=== PATIENT | male | born 1960 | race Caucasian/White ===

== ENCOUNTER 2017-12-22 11:50 | Inpatient (IN) | payer OTHER | END 2017-12-24 12:25 | disposition home or self-care (01) | DRG 244 | LOC: D.ICU 11:50 → D.CVICU 13:33 | PROC: 0JH606Z Insertion of Pacemaker, Dual Chamber into Chest Subcutaneous Tissue and Fascia, Open Approach (ICD-10-PCS; principal; 2017-12-23) | PROC: 02H63JZ Insertion of Pacemaker Lead into Right Atrium, Percutaneous Approach (ICD-10-PCS; 2017-12-23) | PROC: 02HK3JZ Insertion of Pacemaker Lead into Right Ventricle, Percutaneous Approach (ICD-10-PCS; 2017-12-23) | DX: I44.2 Atrioventricular block, complete (principal) ==